=== PATIENT | female | born 1980 | race Two or more races ===

== ENCOUNTER 2023-06-16 18:39 | Emergency (ER) | payer OTHER ==
[~2023-06-16] VITALS: Ht 160 cm; Wt 81.2 kg
[2023-06-17] MEDS ORDERED: MEDROLPACK PO (00:01)
== END 2023-06-17 00:50 | disposition home or self-care (01) ==
LOC: ER 18:40
DX: M75.31 Calcific tendinitis of right shoulder (principal); Z88.6 Allergy status to analgesic agent; Z88.0 Allergy status to penicillin